=== PATIENT | female | born 1960 | race Hispanic/Latino ===

== ENCOUNTER → 2021-06-10 | Outpatient (CLI) | payer BC | LOC: MAMMO 12:55 | PROVIDERS: ATTEND Internal Medicine | DX: Z12.31 Encounter for screening mammogram for malignant neoplasm of breast (principal) | CPT/HCPCS: 77067 ==

== ENCOUNTER → 2022-11-05 | Outpatient (CLI) | payer BC | LOC: MAMMO 09:23 | PROVIDERS: ATTEND Internal Medicine | DX: Z12.31 Encounter for screening mammogram for malignant neoplasm of breast (principal) | CPT/HCPCS: 77067 ==

== ENCOUNTER → 2025-07-05 | Outpatient (REF) | payer BC | LOC: MAMMO 10:14 | PROVIDERS: ATTEND Internal Medicine | DX: Z12.31 Encounter for screening mammogram for malignant neoplasm of breast (principal); M85.88 Other specified disorders of bone density and structure, other site | CPT/HCPCS: 77067; 77080 ==